=== PATIENT | female | born 1990 | race Hispanic/Latino ===

== ENCOUNTER 2016-09-21 15:32 | Observation (INO) | payer OTHER ==
[2016-09-21] MEDS ORDERED: Lactated Ringer's 1,000 ML IV ONE ×2 (16:20→20:40)
[2016-09-21 17:02] LABS: APPEARANCE,URINE HAZY (CLEAR,HAZY); COLOR,URINE YELLOW (YELLOW); OCCULT BLOOD,URINE NEGATIVE (NEGATIVE); UROBILINOGEN,URINE NORMAL (NORMAL)
[2016-09-21] MEDS ORDERED: NIFEdipine 30 mg ER24 Tablet PO ONE (18:35)
[2016-09-21] MEDS ORDERED: NIFEdipine 10 mg Capsule PO ONE (21:10)
[2016-09-21] MEDS ORDERED: Magnesium Sulfate 4 Gm/100 mL Water Premix IV ONE (21:57)
[2016-09-21] MEDS ORDERED: WATER IV ONE (22:05)
[2016-09-21] MEDS ORDERED: MAGNESIUM SULF IV ONE (22:05)
[2016-09-21] MEDS ORDERED: Magnesium Sulfate 20 Gm/500 mL Water Premix IV ONE (22:13)
[2016-09-21] MEDS ORDERED: Betameth Ace-Betam SodPhos 6 mg/mL 5 mL Inj ONE (22:14)
[2016-09-21 22:26] LABS: BASOPHILS % (AUTO) 0.1 % (0-3); EOSINOPHILS % (AUTO) 0.1 % (0-5); MONOCYTES % (AUTO) 11.7 % (4-12); Mean Corpuscular Hemoglobin 27.9 pg (27.0-35.0); Mean Corpuscular Volume 84.9 fL (81-100); NEUTROPHILS % (AUTO) 73.4 % (40-74); Platelet Count 183 bil/L (150-400)
[2016-09-21] MEDS ORDERED: Calcium GLUCOnate 10% (Gm) 1 Gm/10 mL Inj ONE (22:37)
--- NOTE | 2016-09-21 23:11 | HP ---
[address] [address] HISTORY AND PHYSICAL PATIENT: DESTIN PALACIOS : 1990 MR#: [id number] ADMIT: 09/21/2016 JOB ID: [id number] DATE: 09/21/2016 HISTORY OF PRESENT ILLNESS: The patient is a 26-year-old, 3, para 1, at 32 weeks. Estimated due date September 16, 2016 comes to Labor and Delivery with complaint of contractions since 3 p.m. The contractions were becoming more frequent and intense. The patient is also complaining of lower back pain. She denies dysuria, denies urinary urgency, and frequency. She denies GI symptoms. Her care was with [facility], was uncomplicated. The labs were reviewed. She is group B strep unknown, rubella equivocal, blood group and type O positive. ALLERGIES: NKDA. MEDICATIONS: vitamins, vitamin C and ferrous sulfate. FAMILY HISTORY: Noncontributory. SOCIAL HISTORY: Patient denies smoking, alcohol, or illicit recreational drug use. heart rate tracing is category 1. Baseline 140 beats per minute. PHYSICAL EXAMINATION: Blood pressure 110/68, pulse 90, respiratory rate 18, temperature 36.7. HEENT: PERRLA. Chest: Clear bilaterally. Good adventitious sounds. Cardiovascular: Regular rate and rhythm. Abdomen is soft, diffusely tender, gravid uterus, palpates and measures appropriate for gestational age. Extremities: No pitting edema. Skin: Warm, no lesions. ASSESSMENT AND PLAN: The patient is a 26-year-old, 3, para 1, at 32 weeks being admitted for observation for suspected contractions versus labor. IV hydration started with lactated Ringer, patient was given Procardia XL 30 mg. Urine drug screen was sent. Urinalysis was sent. fibronectin was sent as well.
--- NOTE | 2016-09-22 | DIS ---
[address] [address] DISCHARGE SUMMARY PATIENT: DESTIN PALACIOS : 1990 MR#: [id number] ADMIT: 09/21/2016 JOB ID: [id number] DIS: 09/21/2016 ADMITTING DIAGNOSIS: A 26-year-old, 3, para 1, at 32 weeks in labor. DISCHARGE/TRANSFER DIAGNOSIS: A 26-year-old, 3, para 1, at 32 weeks in labor. The patient is a 26-year-old, 3, para 1, at 32 weeks estimated due date November 16, 2016 who came to Labor and Delivery at 3 o'clock p.m. with complaint of contractions. Contractions were regular and intense every 3 minutes. heart rate tracing was reactive, category one. The patient has been complaining of lower back pain, she denies dysuria, urinary, frequency, denied diarrhea, denied a change in the color of stool or urine. The patient denied nausea and vomiting. records from [facility] were reviewed. She is group B strep unknown, rubella equivocal, blood group and type O-positive. care was uncomplicated. SOCIAL HISTORY: Patient denies smoking, alcohol, or illicit recreational drug use. CURRENT MEDICATIONS: 1. vitamins. 2. Vitamin C. 3. Ferrous sulfate. The patient was given two boluses of lactated Ringer and 2 L IV fluids were given. She received Procardia XL 30 mg at 6:50 p.m. and despite that, the contractions were becoming more frequent and intense. fibronectin came back negative. Urinalysis showed trace esterase and was negative for nitrite and urine drug screen came back negative. Additional labs: CBC and comprehensive metabolic panel are still pending. PHYSICAL EXAM: Vital signs: Blood pressure 120/71, pulse 120, respiratory rate 18, temperature 37.7. HEENT: PERRLA. Chest: Lungs clear bilaterally. No adventitious sounds. Cardiovascular: Regular rate and rhythm. Abdomen is tender diffusely on palpation, increasing tenderness with contractions over the uterus. Extremities: No pitting edema. Figure Model exam: The cervix is 1.5 cm dilated, 50% effaced, -1 station. Soft, membranes are intact. ASSESSMENT AND PLAN: A 26-year-old, 3, para 1, at 32 weeks having contractions since 3 p.m., suspected labor. The contractions did not resolve with IV hydration and Procardia. The patient is tachycardic and running low-grade fever of 37.7. Betamethasone 12 mg IM was given, the first dose. Magnesium sulfate is being started 4 g IV bolus followed by 2 g/h. The patient is being transferred to [facility]. Accepting physician is Dr. Munoz. Phone number of the pager is [phone]. Consent for the transfer was obtained and the risks and advantages of the transfer were explained to the patient.
[2016-09-22] MEDS ORDERED: Betameth Ace-Betam SodPhos 6 mg/mL 5 mL Inj IM SCH (08:30)
== END 2016-09-21 22:55 | disposition other institution (70) ==
LOC: FBCO 15:32 → FBC 22:00
PROVIDERS: ADMIT Obstetrics & Gynecology; ATTEND Legal Medicine
DX: O60.03 Preterm labor without delivery, third trimester (principal); R00.0 Tachycardia, unspecified; R50.9 Fever, unspecified; Z3A.32 32 weeks gestation of pregnancy
CPT/HCPCS: 36415; 80053; 81000; 82731; 85025; 87086; 87088; 96372; 96374; 96376; G0378; G0463; G0480; J0702; J3475; J7120